=== PATIENT | male | born 1980 | race African-American/Black ===

== ENCOUNTER 2019-01-23 16:32 | Emergency (ER) | payer SELFPAY ==
[~2019-01-23] VITALS: Ht 167.6 cm; Wt 68.6 kg
[2019-01-23 16:36] VITALS: Ht 167.6 cm; Wt 68.6 kg
[2019-01-23] MEDS ORDERED: DILANTIN100 MG PO (16:39)
[2019-01-23] MEDS ORDERED: SULFAMETHOXAZOL1 TA3 PO (16:39)
[2019-01-23 17:23] LABS: APPEARANCE HAZY (CLEAR); BILIRUBIN NEGATIVE (NEGATIVE); COLOR YELLOW (YELLOW); GLUCOSE NEGATIVE (NEGATIVE); KETONE NEGATIVE (NEGATIVE); NITRITE NEGATIVE (NEGATIVE); PROTEIN TRACE mg/dL (NEGATIVE); UROBILINOGEN NORMAL (NORMAL)
[2019-01-23 17:26] LABS: BACTERIA MODERATE /hpf (NONE SEEN); WHITE CELLS - URINE >50 /hpf (0-5)
[2019-01-23 20:20] LABS: BASOPHILS 0.1 % (0-2); EOSINOPHILS 0.2 % (0-7); HEMATOCRIT 38.6 % (42.0-54.0); HEMOGLOBIN 13.5 g/dL (13.5-17.5); IMMATURE GRANULOCYTES 0.2 % (0-5); MCH 32.9 pg (26.0-34.0); MCV 94.1 fL (80.0-100.0); MEAN PLATELET VOLUME 9.2 fL (7.4-10.4); MONOCYTES 8.4 % (2-11); NEUTROPHILS 79.1 % (40-80); PLATELET COUNT 218 10x3/uL (130-400); RDW 12.3 % (11.5-14.5)
[2019-01-23 20:36] LABS: ALBUMIN 3.1 g/dL (3.4-5.0); ALKALINE PHOSPHATASE 99 U/L (46-116); ALT (SGPT) 21 U/L (10-68); BILIRUBIN - TOTAL 0.49 mg/dL (0.2-1.3); CALC OSMOLALITY 270 mosm/kg (275-300); CALCIUM 8.5 mg/dL (8.5-10.1); CARBON DIOXIDE 27.5 mmol/L (21.0-32.0); CHLORIDE - SERUM 101 mmol/L (98-107); GLUCOSE 101 mg/dL (74-106); POTASSIUM - SERUM 3.8 mmol/L (3.5-5.1); SODIUM 136 mmol/L (136-145); UREA NITROGEN 11 mg/dL (7-18); eGFR NON AFRICAN AMERICAN 89 mL/min (90-120)
[2019-01-23] MEDS ORDERED: ULTRAM50 MG PO (21:22)
[2019-01-23] MEDS ORDERED: PHENERGAN DM SYR5 ML PO (21:22)
[2019-01-23] MEDS ORDERED: OMNICEF300 MG PO (21:22)
[2019-01-24 00:04] VITALS: BP 119/81
== END 2019-01-24 00:05 | disposition home or self-care (01) ==
LOC: D.ER 16:32
PROVIDERS: Family Medicine
DX: N12 Tubulo-interstitial nephritis, not specified as acute or chronic (principal); N23 Unspecified renal colic

== ENCOUNTER 2019-03-15 20:58 | Emergency (ER) | payer SELFPAY ==
[~2019-03-15] VITALS: Ht 167.6 cm; Wt 68.6 kg
[~2019-03-15 20:58] MED LIST: DILANTIN100 MG PO; OMNICEF300 MG PO; PHENERGAN DM SYR5 ML PO; SULFAMETHOXAZOL1 TA3 PO; ULTRAM50 MG PO
[2019-03-15 21:14] VITALS: BP 152/99; Ht 167.6 cm; Wt 68.6 kg
== END 2019-03-15 22:47 | disposition left against medical advice (07) ==
LOC: D.ER 20:58
DX: M54.9 Dorsalgia, unspecified (principal)